=== PATIENT | female | born 1980 | race Caucasian/White ===

== ENCOUNTER 2018-02-03 07:55 | Emergency (ER) | payer BC ==
[~2018-02-03] VITALS: Ht 167.6 cm; Wt 82.0 kg
[2018-02-03] MEDS ORDERED: ONDANSETRON HCL 4MG/2ML VIAL IV STA (08:26)
[2018-02-03] MEDS ORDERED: SODIUM CHLORIDE 0.9% 1,000 ML IV ONE ×2 (08:26→11:24)
[2018-02-03] MEDS ORDERED: ACETAMINOPHEN 325MG TABLET PO ONE (08:30)
[2018-02-03 09:07] LABS: BASOPHILS % 0.3 % (0.0-2.0); EOSINOPHILS % 0.8 % (0.0-5.0); HEMATOCRIT. 35.6 % (36.0-48.0); HEMOGLOBIN. 12.2 g/dL (12.0-16.0); LYMPHOCYTES % 8.5 % (20.0-50.0); MEAN CORPUSCULAR HEMOGLOBIN 30.1 pg (28.0-32.0); MEAN PLATELET VOLUME 8.5 fl (7.4-10.4); NEUTROPHILS % 85.4 % (40.0-76.0); PLATELET 362 x1000/uL (130-400); RED BLOOD CELL COUNT 4.04 mill/uL (4.2-5.4); RED CELL DISTRIBUTION WIDTH 13.9 % (11.6-14.6)
[2018-02-03 09:11] LABS: CHLORIDE 106 mEq/L (98-107)
[2018-02-03 09:17] LABS: CLARITY URINE SL HAZY (CLEAR); COLOR URINE YELLOW (YELLOW); KETONES URINE 2+ (NEGATIVE); LEUKOCYTE ESTERASE URINE 1+ (NEGATIVE); NITRITE URINE NEGATIVE (NEGATIVE); OCCULT BLOOD URINE NEGATIVE (NEGATIVE); PROTEIN URINE 1+ (NEGATIVE); SPECIFIC GRAVITY URINE 1.024 (1.005-1.030); UROBILINOGEN URINE 0.2 E.U./dL (0.2-1.0)
[2018-02-03 09:34] LABS: B-HCG QUANTITATIVE 13891 mIU/mL (<3)
[2018-02-03] MEDS ORDERED: ONDANSETRON HCL 4MG/2ML VIAL ONE (11:14)
[2018-02-03] MEDS ORDERED: ONDANSETRON HCL 4MG/2ML VIAL IV ONE (11:30)
[2018-02-03] MEDS ORDERED: CEFTRIAXONE 1 G PREMIX 50 ML IV ONE (12:00)
[2018-02-03] MEDS ORDERED: FAMOTIDINE 20MG/2ML VIAL IV ONE (14:15)
[2018-02-03 14:58] VITALS: BP 118/69
[2018-02-03] MEDS ORDERED: ZOLP10TA2 PO (15:36)
[2018-02-03] MEDS ORDERED: BUTA1CAP45 PO (15:36)
[2018-02-03] MEDS ORDERED: PNV1TABL76 PO (15:36)
[2018-02-03] MEDS ORDERED: LACTATED RINGERS 1,000 ML IV SCH (16:30)
[2018-02-03] MEDS ORDERED: PANTOPRAZOLE SODIUM 40 MG/VIAL IV NR (16:30)
[2018-02-03] MEDS ORDERED: PROMETHAZINE HCL 25MG TABLET PO NR (17:30)
== END 2018-02-03 18:43 | disposition home or self-care (01) ==
LOC: ER 08:03 → L&D 14:36
PROVIDERS: ADMIT Obstetrics & Gynecology; ATTEND Obstetrics & Gynecology
DX: O21.2 Late vomiting of pregnancy (principal); Z3A.28 28 weeks gestation of pregnancy
CPT/HCPCS: 36415; 76805; 76817; 80048; 81003; 84702; 85025; 93005; 93970; 96361; 96365; 96366; 96375; 96376; 99281; C9113; G0378; J0696; J2405; J3490; J7030; J7120; Z7610; 96360; Q0169